=== PATIENT | male | born 1990 | race Caucasian/White ===

== ENCOUNTER 2019-04-04 07:31 | Emergency (ER) | payer BC ==
[~2019-04-04] VITALS: Ht 180.3 cm; Wt 81.7 kg
--- OUTSIDE RECORDS SUMMARY | 2019-04-04 08:54 | XMS ---
PreManage Notification: [employer] Events No recent Security Events currently on file CRITERIA MET - [facility] - 2 Visits in 30 Days CARE PROVIDERS DENIS BROWN [facility] Current PHONE: [phone] TREVIN MCCLELLAND [facility]: [facility] Qualified [facility] ([facility]) [facility] - PHONE: [phone] Mike has no Care Guidelines for this patient. [place] VISIT COUNT (12 MO.) [address] [place] [address] TOTAL 2 NOTE: Visits indicate total known visits. ED/UCC VISIT TRACKING (12 MO.) 04/04/2019 07:32 [facility] TYPE: Emergency COMPLAINT: - BLO[facility] STOOL[facility] DIAGNOSES: - rib pain - Contusion of unspecified front wall of thorax, init encntr INPATIENT VISIT TRACKING (12 MO.) No inpatient visits to display in this time frame [email or web address]
== END 2019-04-04 08:21 | disposition home or self-care (01) ==
LOC: ED 07:31
DX: K62.89 Other specified diseases of anus and rectum (principal)
CPT/HCPCS: 99283